=== PATIENT | male | born 1985 | race Caucasian/White ===

== ENCOUNTER 2016-07-09 20:15 | Emergency (ER) | payer MEDICAID, MEDICARE, OTHER ==
--- NOTE | 2016-07-09 22:08 | EDM.PDOC ---
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 He has a history of autism, OCD, anxiety, depression, diabetes I with indwelling insulin pump, hypothyroidism. Family reports him withdrawing from friends as well as family members, Theo describes family actions with paranoid terminology. Father did send a letter of concern to [facility] and his field case manager asking for him to be taken to a mental health facility to stop what he appears to be a downward spiral. He is not answering his telephone, is not answering his door for family, is not spending money on food and medications. They are also concerned because he has given his cat of two years to the [employer]. When questioned about this he stated it was because the cat was "pooping and peeing in my house". He states his uncle and aunt are stealing items from him so he did change the door locks.He does not appear suicidal, however he does appear to be very paranoid. Symptom Onset Date: 04/30/16 (noticed by father over the course of several months) Associated Symptoms: Reports: no other symptoms, other (he states he doesn't know why he is here) - Related Data Allergies/ADRs: Allergies Allergy/AdvReac Type Severity Reaction Status Date / Time No Known Allergies Allergy Verified 07/09/16 21:35 Home Meds: Home Meds Glucagon,Human Recombinant [Glucagon Emergency Kit] 1 mg IJ ONETIME #1 kit 08/25 [Rx] Ibuprofen [Motrin] 600 mg PO Q8H #1 tablet 08/25/14 [Rx] Levothyroxine [Synthroid] 50 mcg PO ACBREAKFAST #1 tablet 08/25/14 [Rx] Multivitamin [Daily Vitamin] 1 each PO DAILY #1 tablet 08/25/14 [Rx] Polyethylene Glycol 3350 [Miralax] 17 gm PO DAILY PRN #1 powd.pack 08/25/14 [Rx] Simvastatin [Zocor] 20 mg PO BEDTIME #1 tablet 08/25/14 [Rx] lamoTRIgine [Lamictal] 100 mg PO BID #60 tablet 08/25/14 [Rx] risperiDONE [RisperiDAL] 1 mg PO BEDTIME #1 tab 08/25/14 [Rx] traZODone 50 mg PO BEDTIME #1 tablet 08/25/14 [Rx] Insulin Aspart [NovoLOG] 42 unit SUBCUT ASDIRECTED 01/13/15 [History] Past Medical History Other Musculoskeletal History: fracture of right ulna Social & Family History - Tobacco Use Smoking Status *Q: Never Smoker Second Hand Smoke Exposure: No - Alcohol Use Days Per Week of Alcohol Use: 0 - Recreational Drug Use Recreational Drug Use: No ED ROS GENERAL - Review of Systems Review Of Systems: See Below Constitutional: Reports: no symptoms HEENT: Reports: No symptoms Respiratory: Reports: No Symptoms Cardiovascular: Reports: No symptoms Endocrine: Reports: no symptoms GI/Abdominal: Reports: No symptoms : Reports: no symptoms Musculoskeletal: Reports: no symptoms Skin: Reports: no symptoms Neurological: Reports: No Symptoms Psychiatric: Reports: No symptoms Hematologic/Lymphatic: Reports: no symptoms Immunologic: Reports: no symptoms ED EXAM, NEURO - Physical Exam Exam: See Below Exam Limited By: Altered mental status General Appearance: alert, WD/WN, anxious, mild distress Eye Exam: bilateral eye: EOMI, PERRL Nose: normal inspection Throat/Mouth: Normal inspection, Normal oropharynx Head Exam: atraumatic, normocephalic Neck: normal inspection Respiratory/Chest: no respiratory distress, lungs clear, normal breath sounds Cardiovascular: normal peripheral pulses, regular rate, rhythm GI/Abdominal: normal bowel sounds, soft, non tender Neurological: alert, CN II-XII intact, oriented x 3 Extremities: normal inspection, normal range of motion, normal capillary refill Psychiatric: anxious, other (paranoid statements made during exam) Skin Exam: Warm, Dry, Intact, Normal color, No rash Course - Orders/Labs/Meds Orders: Active Orders 24 hr Category Date Time Status CBC WITH AUTO DIFF [HEME] Stat Lab 07/09/16 21:55 Ordered COMPREHENSIVE METABOLIC PN,CMP [CHEM] Stat Lab 07/09/16 21:55 Ordered DRUG SCREEN, URINE [URCHEM] Stat Lab 07/09/16 21:57 Uncollected TSH ULTRASENSITIVE [CHEM] Stat Lab 07/09/16 21:56 Ordered URINALYSIS W/MICROSCOPIC [UA W/MICROSCOPIC] [URIN] Stat Lab 07/09/16 21:55 Uncollected - Re-Assessments/Exams Free Text/Narrative Re-Assessment/Exam: 07/09/16 23:12 Discussed admission to hospital with Dr. Maza from the [facility]. He did accept care of the patient to the hospital. Departure - Departure Time of Disposition: 23:41 ([facility] ) Disposition: DC/Tfer to Psych Hosp/[facility] Condition: good Clinical Impression: Paranoia, Diabetes, History of OCD (obsessive compulsive disorder) Instructions: Paranoia Forms: ED Department Discharge - My Orders Last 24 Hours: My Active Orders 07/09/16 21:55 CBC WITH AUTO DIFF [HEME] Stat COMPREHENSIVE METABOLIC PN,CMP [CHEM] Stat URINALYSIS W/MICROSCOPIC [UA W/MICROSCOPIC] [URIN] Stat 07/09/16 21:56 TSH ULTRASENSITIVE [CHEM] Stat 07/09/16 21:57 DRUG SCREEN, URINE [URCHEM] Stat - Assessment/Plan Last 24 Hours: My Active Orders 07/09/16 21:55 CBC WITH AUTO DIFF [HEME] Stat COMPREHENSIVE METABOLIC PN,CMP [CHEM] Stat URINALYSIS W/MICROSCOPIC [UA W/MICROSCOPIC] [URIN] Stat 07/09/16 21:56 TSH ULTRASENSITIVE [CHEM] Stat 07/09/16 21:57 DRUG SCREEN, URINE [URCHEM] Stat
[2016-07-09 22:28] VITALS: BP 159/80
== END 2016-07-09 23:58 ==
LOC: VM.ED 20:15
DX: F22 Delusional disorders (principal); E11.9 Type 2 diabetes mellitus without complications; Z86.59 Personal history of other mental and behavioral disorders; Z79.899 Other long term (current) drug therapy; Z79.4 Long term (current) use of insulin
CPT/HCPCS: 36415; 80053; 80305; 81001; 84443; 85025; 99285; 99285-GF